=== PATIENT | female | born 1985 | race Caucasian/White ===

== ENCOUNTER 2016-07-31 15:32 | Outpatient (CLI) | payer OTHER ==
[2016-07-31 16:11] LABS: Glucose,Whole Blood 93 mg/dL (75-99)
[2016-07-31 16:47] VITALS: BP 122/75; PULSE 78; RESP 18; TEMP 97.5
== END 2016-07-31 17:05 | disposition home or self-care (01) ==
LOC: FBPOP 15:32
PROVIDERS: ATTEND Obstetrics & Gynecology
DX: O99.89 Other specified diseases and conditions complicating pregnancy, childbirth and the puerperium (principal); R42 Dizziness and giddiness; Z3A.34 34 weeks gestation of pregnancy
CPT/HCPCS: 59025; 99213

== ENCOUNTER 2016-08-14 15:10 | Outpatient (CLI) | payer OTHER ==
[2016-08-14 15:30] VITALS: BP 116/69; PULSE 111; RESP 16; TEMP 97.2
[2016-08-14 16:50] LABS: Appearance,Urine Clear (Clear); Bilirubin,Urine Negative (Negative); Glucose,Urine (UA) Negative (Negative); Ketones,Urine 3+ (Negative); Leukocyte Esterase,Urine Negative (Negative); Nitrite,Urine Negative (Negative); PH, Urine 6.5 (5.0-8.0); Protein,Urine Negative (Negative); Specific Gravity,Urine 1.008 (1.001-1.035); UA Billing (MACRO vs. MICRO) CHEM; Urobilinogen,Urine <2.0 mg/dL (<2.0)
== END 2016-08-14 17:00 | disposition home or self-care (01) ==
LOC: FBPOP 15:10
PROVIDERS: ATTEND Obstetrics & Gynecology
DX: O47.00 False labor before 37 completed weeks of gestation, unspecified trimester (principal); Z3A.36 36 weeks gestation of pregnancy
CPT/HCPCS: 59025; 81003; 99213

== ENCOUNTER 2016-09-11 13:55 | Inpatient (IN) | payer OTHER ==
[2016-09-13] MEDS: LACTATED RINGERS 1,000 ML IV SCH ×3 (10:15→15:28)
[2016-09-13] MEDS ORDERED: CARBOPROST TROMETHAMINE 250 MCG/ML 1 ML AMP IM PRN (10:28)
[2016-09-13] MEDS ORDERED: LIDOCAINE 1% (PF) 10 MG/ML (30 ML SDV) SQ PRN (10:28)
[2016-09-13] MEDS ORDERED: METHYLERGONOVINE 0.2 MG/ML 1 ML AMP IM PRN (10:28)
[2016-09-13] MEDS ORDERED: OXYTOCIN 10 UNIT/ML 1 ML VIAL IM PRN (10:28)
[2016-09-13] MEDS ORDERED: TERBUTALINE 1 MG/ML VIAL SQ PRN (10:28)
[2016-09-13] MEDS ORDERED: BUTORPHANOL 1 MG/ML 1 ML VIAL IV PRN (10:29)
[2016-09-13 10:47] LABS: Basophils # (A) 0.1 k/uL (0-0.2); Basophils % (A) 1 %; CHCM 33.9; Eosinophils # (A) 0.1 k/uL (0-0.7); Eosinophils % (A) 1 %; HCT 37.2 % (34.0-46.0); HDW 3.25; HGB 12.5 gm/dL (11.4-16.0); Luc # (Auto) 0.17; Luc % (Auto) 2; Lymphocytes # (A) 1.6 k/uL (1.0-4.8); Lymphocytes % (A) 15 %; MCH 28.9 pg (25.0-35.0); MCHC 33.6 g/dL (31.0-37.0); MCV 85.9 fL (80.0-100.0); Mean Platelet Volume 8.2; Monocytes # (A) 0.5 k/uL (0-1.0); Monocytes % (A) 4 %; Neutrophils # (A) 8.2 k/uL (1.3-7.7); Neutrophils % (A) 77 %; RBC 4.33 m/uL (3.80-5.40); RDW 14.3 % (11.5-15.5); WBC 10.6 k/uL (3.8-10.6); WBC (Perox) 10.68
[2016-09-13 11:01] VITALS: BMI 29.4
--- NOTE | 2016-09-13 12:37 | P.HPOB ---
History of Present Illness H&P Date: 09/13/16 Chief Complaint: 40-2/7 weeks, active labor The patient is a 31-year-old 1 para 0 admitted at 40-2/7 weeks as established by last menstrual period and confirmed by 19 week ultrasound. She is admitted for active management of labor as she has demonstrated cervical change. She was scheduled for induction tomorrow but presented with regular contractions and cervical change. Her has been essentially uncomplicated and group B strep status is negative. On labor and delivery, all signs are reassuring. Obstetrical history 1 para 0 with current statistics listed in history of present illness. EDC of 09/11/2016 was established by last menstrual period and confirmed by 19 week ultrasound. Laboratory workup done Schutze blood type of B+ with a negative antibody screen. Rubella status is immune. All other laboratory workup was within normal limits. One hour Glucola was normal and group B strep status is negative. Gynecologic history is unremarkable with no history of any infections to include STDs. Review of Systems Review of systems is confined to history of present illness. Past Medical History Past Medical History: No Reported History History of Any Multi-Drug Resistant Organisms: None Reported Past Surgical History: No Surgical Hx Reported Past Anesthesia/Blood Transfusion Reactions: No Reported Reaction Past Psychological History: No Psychological Hx Reported Smoking Status: Never smoker Past Alcohol Use History: None Reported Past Drug Use History: None Reported - Past Family History Mother Additional Family Medical History / Comment(s): von zayda Medications and Allergies Home Medications Medication Instructions Recorded Confirmed Type Pnv,Calcium 72/Iron/Folic Acid 1 tab PO DAILY 07/31/16 09/13/16 History [ Plus Tablet] Beclomethasone Dipropionate [Qvar 1 puff INHALATION BID 09/13/16 09/13/16 History 40 mcg] Allergies Allergy/AdvReac Type Severity Reaction Status Date / Time Penicillins Allergy Rash/Hives Verified 09/13/16 10:27 Sulfa (Sulfonamide Allergy Rash/Hives Verified 09/13/16 10:27 Antibiotics) Exam - Vital Signs Vital signs: Vital Signs Temp Pulse Resp BP Pulse Ox 09/13/16 10:56 97.8 F 85 16 121/76 100 Intake and Output 09/12/16 09/13/16 09/13/16 22:59 06:59 14:59 Other: Weight 75.296 kg Patient Weight 07/20/17 06:59 Weight 75.296 kg In general, this is a well-developed, well-nourished white female in some discomfort as she is in active labor. Her heart has a regular rhythm and rate without murmur. Her lungs are clear to auscultation bilaterally in all cruz. Her abdomen is gravid, nondistended, has normal active bowel sounds, is soft, nontender, and without any palpable masses aside from the uterine fundus. Her extremities are without any cyanosis, clubbing, or significant edema and are nontender to palpation bilaterally. Digital cervical examination demonstrates her cervix to be 5 cm dilated, 100% effaced, the vertex in presentation at 0 to -1 station. Artificial rupture of membranes is carried out demonstrating clear fluid. Results Result Diagrams: 09/13/16 10:32 Abnormal Lab Results - Last 24 Hours (Table) 09/13/16 Range/Units 10:32 Neutrophils # 8.2 H (1.3-7.7) k/uL Assessment and Plan (1) Active labor at term Status: Acute Plan: The patient has been admitted for active management of labor. Her has been uncomplicated. She will have close maternal and surveillance and expectant management will be practiced. She is a good candidate for either IV or epidural analgesia having had a single dose of Stadol thus far. She is now requesting epidural. Should she make no progress over the course of the next the several hours, Pitocin augmentation will be started.
[2016-09-13] MEDS ORDERED: BUPIVACAINE (PF) 0.25% 30 ML VIAL ONE (13:17)
[2016-09-13] MEDS ORDERED: fentaNYL (PF) 50 MCG/ML 5 ML AMP ONE (13:17)
[2016-09-13] MEDS ORDERED: SODIUM CHLORIDE 0.9% 100 ML BAG ONE (13:17)
[2016-09-13] MEDS ORDERED: BUPIVACAINE (PF) 0.25% 25 ML, fentaNYL (PF) 200 MCG in SODIUM CHLORIDE 0.9% 71 ML EPIDURAL ONE (13:41)
[2016-09-13] MEDS ORDERED: OXYTOCIN 20 UNITS/1000 ML NS 1,000 ML IV SCH (15:30)
[2016-09-13] MEDS ORDERED: ZOLPIDEM 5 MG TAB PO PRN (18:51)
[2016-09-13] MEDS ORDERED: ACETAMINOPHEN TAB 325 MG TAB PO PRN (18:51)
[2016-09-13] MEDS ORDERED: BENZOCAINE/MENTHOL SPRAY 1 GM/SPRAY AEROSOL TOPICAL PRN (18:51)
[2016-09-13] MEDS ORDERED: WITCH HAZEL 1 EACH MED..PAD TOPICAL PRN (18:51)
[2016-09-13] MEDS ORDERED: diphenhydrAMINE 25 MG CAP PO PRN (18:51)
[2016-09-13] MEDS ORDERED: Acetaminophen-Codeine 300-30mg TAB PO PRN (18:51)
[2016-09-13] MEDS ORDERED: LANOLIN CREAM 5 GM TUBE TOPICAL PRN (18:51)
[2016-09-13] MEDS ORDERED: HYDROCORTISONE 2.5% RECTAL CREAM 30 GM TUBE RECTAL PRN (18:51)
[2016-09-13] MEDS ORDERED: diphenhydrAMINE 50 MG CAP PO PRN (18:51)
[2016-09-13] MEDS ORDERED: SIMETHICONE 80 MG CHEWABLE PO PRN (18:51)
[2016-09-13] MEDS ORDERED: diphenhydrAMINE 50 MG/ML 1 ML VIAL IVP PRN ×2 (18:51)
[2016-09-13] MEDS ORDERED: DIPH,PERTUS(ACELL)TETVAC-LF 0.5 ML VIAL IM ONE (18:52)
--- NOTE | 2016-09-13 18:56 | P.PROBDLV ---
Vaginal Delivery Note - . Vaginal Delivery Note: The patient is a 31-year-old 1 para 0 admitted at 40-2/7 weeks by good dating parameters. She is admitted in early active labor with all signs reassuring. Her has been uncomplicated and group B strep status is negative. On labor and delivery she made progress on her own to approximate 5 cm at which time artificial rupture of membranes is carried out demonstrating clear fluid. She had an epidural catheter placed for analgesia and then continued to progress very slowly. She had Pitocin augmentation started and then progressed fairly routinely to complete. She pushed over the course of approximately 1 hour and 20 minutes to a normal spontaneous vaginal delivery of a viable 8 lbs. 12 oz. baby girl with Apgars of 7 at 1 minute and 9 at 5 minutes delivered in the right occiput anterior position. There was a loose nuchal cord 1 which was reduced following delivery of the infant. The nose and mouth were thoroughly suctioned both on the perineum and after delivery. The placenta was delivered spontaneously, intact, and grossly normal with a grossly normal three-vessel cord inserted approximately 3-4 cm from the margin of the placental disc. A second-degree midline episiotomy had been cut for delivery as it was apparent that the patient was going to have a laceration. This was noted to have extended to a fourth degree laceration which just presented to the anal verge. The fourth degree perineal laceration was repaired in standard fashion using 3-0 chromic catgut for subcuticular correct stitch followed by closure of the external anal sphincter in 4 quadrants through the capsule using [id number] stitches of 2-0 Vicryl. The remainder of the laceration was closed in standard fashion using 3-0 chromic catgut without difficulty. Following repair, the vaginal repair was noted to be intact to its apex and one finger in the rectum was noted to have no further rectal defects with what was felt to be very solid and thick external anal sphincter on the anterior side. Estimated blood loss for the case was approximately 300 mL. The only complication was the fourth degree extension of the second-degree episiotomy. All sponge, instrument, and needle counts were correct. The has been taken to the nursery for observation as she was having some retraction and respiratory concerns. In the nursery, she is oxygenating at 97% on room air and improving rapidly. Both mother and infant are currently resting separately but comfortably in recovery.
[2016-09-13] MEDS: SENNOSIDES-DOCUSATE SODIUM 1 EACH TAB PO SCH (20:52)
[2016-09-13] MEDS: Acetaminophen-Codeine 300-30mg TAB PO PRN (20:52)
[2016-09-14] MEDS: IBUPROFEN 600 MG TAB PO PRN ×3 (00:41→15:29)
[2016-09-14] MEDS: Acetaminophen-Codeine 300-30mg TAB PO PRN ×3 (04:03→18:20)
[2016-09-14] MEDS: SENNOSIDES-DOCUSATE SODIUM 1 EACH TAB PO SCH ×2 (08:05→20:04)
--- NOTE | 2016-09-14 08:59 | P.DS ---
Providers Date of admission: 09/13/16 10:20 Expected date of discharge: 09/14/16 Attending physician: Cordell Tucker Primary care physician: Stated None - Discharge Diagnosis(es) (1) Active labor at term Current Visit: Yes Status: Acute (2) Normal spontaneous vaginal delivery Current Visit: Yes Status: Acute Hospital Course: Is a 31-year-old 1 para 0 admitted at 40-2/7 weeks by good dating parameters. She is admitted in early active labor with all signs reassuring. Her was uncomplicated and group B strep status was negative. On labor and delivery, she had an epidural catheter placed after undergoing artificial rupture of membranes for clear fluid. She had Pitocin augmentation started and ultimately progressed to complete where after she pushed to a normal spontaneous vaginal delivery of a viable 8 lbs. 12 oz. baby girl with Apgars of 7 at 1 minute and 9 at 5 minutes. The delivery was Located by a fourth degree extension of a second-degree midline episiotomy. This was repaired in standard fashion without difficulty. Her course was unremarkable with vital signs remained stable and her temperature was afebrile throughout. She was deemed stable for discharge by day #1 was discharged home to follow-up in the office in 6 weeks' time routinely. Discharge instructions included calling for any significantly increased bleeding or foul-smelling lochia, significantly increased fever or abdominal pain, perineal complaints, breast complaints, or anything else that concerned her. She was additionally instructed to have nothing in the vagina for at least 6 weeks time to include intercourse. She understood her instructions and agrees to follow up as noted above. Discharge medications included continued vitamins as she has opted to breast-feed. She is additionally provided with a prescription for Tylenol 3, 1-2 by mouth every 6 hours when necessary pain, #30 dispensed without refills. Maternal blood type is B+ and rubella status is immune. Procedures: #1. Artificial rupture of membranes #2. Epidural analgesia #3. Pitocin augmentation #4. Normal spontaneous vaginal delivery #5. Repair of fourth degree perineal laceration Patient Condition at Discharge: Good Plan - Discharge Summary New Discharge Prescriptions: No Action Pnv,Calcium 72/Iron/Folic Acid [ Plus Tablet] 1 tab PO DAILY Beclomethasone Dipropionate [Qvar 40 mcg] 1 puff INHALATION BID Discharge Medication List Pnv,Calcium 72/Iron/Folic Acid [ Plus Tablet] 1 tab PO DAILY 07/31/16 [ History] Beclomethasone Dipropionate [Qvar 40 mcg] 1 puff INHALATION BID 09/13/16 [ History] Follow up Appointment(s)/Referral(s): Cordell Tucker MD [STAFF PHYSICIAN] - 6 Weeks Discharge Disposition: HOME SELF-CARE
[2016-09-14 11:23] VITALS: RESP 16; TEMP 98.3
[2016-09-14 17:58] VITALS: BP 124/68; PULSE 72
== END 2016-09-14 20:30 | disposition home or self-care (01) | DRG 775 ==
LOC: 4FBP 09-13 10:20
PROVIDERS: ADMIT Obstetrics & Gynecology; ATTEND Obstetrics & Gynecology
PROC: 10E0XZZ Delivery of Products of Conception, External Approach (ICD-10-PCS; principal; 2016-09-13)
PROC: 0DQP0ZZ Repair Rectum, Open Approach (ICD-10-PCS; 2016-09-13)
PROC: 0W8NXZZ Division of Female Perineum, External Approach (ICD-10-PCS; 2016-09-13)
PROC: 00HU33Z Insertion of Infusion Device into Spinal Canal, Percutaneous Approach (ICD-10-PCS; 2016-09-13)
PROC: 3E0R3CZ (ICD-10-PCS; 2016-09-13)
DX: O69.81X0 Labor and delivery complicated by cord around neck, without compression, not applicable or unspecified (principal); O70.3 Fourth degree perineal laceration during delivery; Z37.0 Single live birth; Z3A.40 40 weeks gestation of pregnancy; Z88.0 Allergy status to penicillin; Z88.2 Allergy status to sulfonamides
CPT/HCPCS: 85025; 88307; 90715

== ENCOUNTER 2016-09-13 09:51 | Outpatient (CLI) | payer OTHER ==
[2016-09-13 10:55] VITALS: BP 121/76; PULSE 85; RESP 16; TEMP 97.8
--- NOTE | 2016-11-03 11:17 | P.MSEPDOC ---
Presenting Problems - Arrival Data Date of Arrival on Unit: 09/13/16 Time of Arrival on Unit: 10:00 Mode of Transport: Ambulatory - Complaint OB-Reason for Admission/Chief Complaint: Possible Onset of Labor Medical History - Information : 1 Para: 0 - Gestational Age Expected Date of Delivery: 09/11/16 Gestational Age by SUKHJINDER (wks/days): 47 Weeks and 4 Days Review of Systems - Review of Systems Constitutional: No problems Breast: No problems ENT: No problems Cardiovascular: No problems Respiratory: No problems Gastrointestinal: No problems Genitourinary: No problems Musculoskeletal: No problems Neurological: No problems Skin: No problems Vital Signs - Temperature Temperature: 97.8 F Temperature Source: Oral - Pulse Right Sitting Brachial Pulse Rate: 85 Pulse Assessment Method: Automatic Cuff - Respirations Respiratory Rate: 16 Oxygen Delivery Method: Room Air O2 Sat by Pulse Oximetry: 100 - Blood Pressure Right Arm Blood Pressure: 121/76 Blood Pressure Mean: 91 Blood Pressure Source: Automatic Cuff Medical Screen Scoring (Pre) - Cervical Exam Dilation: 1-3 cm = 1 Effacement: More than 50% = 2 Membranes: Intact - Uterine Contractions Frequency: > or = 36 weeks =2 Duration: > 40 seconds = 2 Intensity: Contraction palpated strong = 1 - Maternal Vital Signs Maternal Temperature: N/A Maternal Blood Pressure: N/A Signs of Preeclampsia: N/A Maternal Respirations: N/A - Maternal Trauma Maternal Trauma: N/A - Assessment Baseline FHR: 130 Heart Rate - NICHD Category: Category I (Normal) = 0 NST: Reactive Position: N/A Station: N/A - Total Score Total Score (Pre): 8 - Level of Risk Level of Risk: Medium (6-9) Physician Notification (Pre) - Physician Notified Physician Notified Date: 09/13/16 Physician Notified Time: 10:07 Spoke With: dr herrera New Order Received: Yes I agree with the RN Medical Screening Exam: No Physician's MSE Comment: The patient was not 47 weeks and 4 days at the time of presentation and the disposition is not documented. Risk & Benefit of care provided described in d/c instruction: No Diagnosis: FALSE LABOR, UNSPECIFIED
== END 2016-09-13 11:44 | disposition home or self-care (01) ==
LOC: FBPOP 09:51
PROVIDERS: ATTEND Obstetrics & Gynecology
DX: O47.9 False labor, unspecified (principal); Z3A.49 Greater than 42 weeks gestation of pregnancy
CPT/HCPCS: 59025; 99213